=== PATIENT | male | born 1995 | race African-American/Black ===

== ENCOUNTER 2018-05-04 21:57 | Emergency (ER) | payer OTHER ==
--- NOTE | 2018-05-04 23:24 | ER Document Report ---
HPI - HPI Pain Level: 2 Notes: Patient is a 22-year-old male no significant past medical history who presents to the ED complaining of urinary urgency, frequency, and voiding small amounts with some burning associated over the last 3 days. She states that he is sexually active, but does not believe that he has an STD or STI. Patient states that he has not noticed any urethral discharge. He denies any drug allergies. No other concerns or complaints. Denies any headache, fever, URI, sore throat, chest pain, palpitations, syncope, cough, shortness of breath, wheeze, dyspnea, abdominal pain, nausea/vomiting/diarrhea, urinary retention, hematuria, back pain, loss of control of bowel or bladder, or rash. - ROS Systems Reviewed and Negative: Yes All other systems reviewed and negative Past Medical History - Social History Smoking Status: Never Smoker Family History: Reviewed & Not Pertinent Vertical Provider Document - CONSTITUTIONAL Agree With Documented VS: Yes Notes: PHYSICAL EXAMINATION: GENERAL: Well-appearing, well-nourished and in no acute distress. LUNGS: Breath sounds clear to auscultation bilaterally and equal. No wheezes rales or rhonchi. HEART: Regular rate and rhythm without murmurs, rubs, gallops. ABDOMEN: Soft, nontender, nondistended abdomen. No guarding, no rebound. No masses appreciated. Normal bowel sounds present. No CVA tenderness bilaterally. : circum. No urethral discharge. No lesions, ulcerations, erythema, or swelling. Non-tender to palp of the penis/scrotum/testicles. Musculoskeletal: FROM to passive/active. Strength 5+/5. Extremities: No cyanosis, clubbing, or edema b/l. Peripheral pulses 2+. Capillary refill less than 3 seconds. NEUROLOGICAL: Normal speech, normal gait. PSYCH: Normal mood, normal affect. SKIN: Warm, Dry, normal turgor, no rashes or lesions noted. - INFECTION CONTROL TRAVEL OUTSIDE OF THE [place] IN LAST 30 DAYS: No Course - Re-evaluation Re-evalutation: 05/05/18 00:56 Patient is an afebrile, well-hydrated, 22-year-old male who presents to the ED with dysuria, possible UTI versus STD/STI. Vitals are acceptable without any significant tachycardia, tachypnea, or hypoxia. PE is otherwise unremarkable. See urinalysis results. Urine culture is pending. Chlamydia gonorrhea tests are also pending. Patient given Zithromax and Rocephin. Conservative measures for symptoms. He is nontoxic-appearing and is tolerating p.o. without any difficulties. No further labs or imaging warranted at this time. Low suspicion /risk for acute appendicitis, bowel obstruction, acute cholecystitis, perforated diverticulitis, incarcerated hernia, pancreatitis, perforated ulcer, peritonitis, sepsis, testicular torsion, or other systemic emergent condition at this time. Patient is aware that his condition can change from initial presentation and he needs to monitor symptoms closely and seek medical attention if any acute changes. I will send him home with a prescription for Keflex. Conservative measures otherwise for symptoms. Recheck with PCM/health department in 3-5 days. Return to the ED with any worsening/concerning symptoms otherwise as reviewed in discharge. Patient is in agreement. - Vital Signs Vital signs: Temp Pulse Resp BP Pulse Ox 98.1 F 67 16 141/97 H 100 05/04/18 23:18 05/04/18 23:18 05/04/18 23:18 05/04/18 23:18 05/04/18 23:18 Discharge - Discharge Clinical Impression: Dysuria, Acute UTI (urinary tract infection) Condition: Stable Disposition: HOME, SELF-CARE Instructions: Cephalexin ([facility]), Urinary Tract Infection ([facility]) Additional Instructions: Push fluids (i.e. water, cranberry juice) Proper hygenic technique Keep the skin clean Tylenol/ibuprofen as needed Take medications as directed You may call tomorrow morning for your results of your chlamydia and gonorrhea test, but otherwise you were already treated for both F/u with your PCM in 3-5 days for a recheck See the health clinic this week for further evaluation and testing if warranted Consider consult with a Urologist for ongoing/worsening symptoms. Return to the ED with any worsening symptoms and/or development of fever, headache, chest pain, palpitations, syncope, shortness of breath, trouble breathing, abdominal pain, n/v/d, blood in stool/urine, loss of control of bowel /bladder, urinary retention, or other worsening symptoms that are concerning to you. Prescriptions: Cephalexin Monohydrate [Keflex 500 mg Capsule] 500 mg PO TID #21 capsule Forms: Elevated Blood Pressure Referrals: ROMY HIGUERA MD [Primary Care Provider] - [facility] - Follow up in 3-5 days
[2018-05-05 00:52] LABS: APPEARANCE,URINE SLIGHTLY-CLOUDY; BILIRUBIN,URINE NEGATIVE (NEGATIVE); COLOR,URINE YELLOW; GLUCOSE, URINE NEGATIVE (NEGATIVE); KETONES,URINE NEGATIVE (NEGATIVE); LEUKOCYTE ESTERASE,URINE MODERATE (NEGATIVE); NITRITE,URINE NEGATIVE (NEGATIVE); PROTEIN,URINE 30 mg/dL (NEGATIVE); URINE SPECIFIC GRAVITY 1.027
[2018-05-05] MEDS ORDERED: CEFTRIAXONE INJ 250 MG VIAL IM ONE (00:56)
[2018-05-05] MEDS ORDERED: AZITHROMYCIN 250 MG TABLET PO ONE (00:56)
[2018-05-05] MEDS ORDERED: LIDOCAINE 1% INJ-PF (10 MG/ML) 30 ML SDV INJ ONE (00:56)
[2018-05-05 01:18] VITALS: BP 127/87
[2018-05-05 02:07] LABS: CHLAM PCR DETECTED (NOT DETECT); GON PCR NOT DETECTED (NOT DETECT)
== END 2018-05-05 01:18 | disposition home or self-care (01) ==
LOC: ER 21:57
DX: N39.0 Urinary tract infection, site not specified (principal); R30.0 Dysuria
CPT/HCPCS: 99283; 96372; 87086; 81001; 87491; 87591; J3490; J0696